=== PATIENT | female | born 1935 | race Caucasian/White ===

== ENCOUNTER → 2017-08-14 | Outpatient (CLI) | payer MEDICARE, OTHER ==
[~2017-08-14] MED LIST: ACID REDUCER 1150 MG PO; DILT120; ERYT250 PO; Eryped 400400 MG/5 M; LISI5 PO; PRAV20
== END | disposition home or self-care (01) ==
LOC: OLS 16:05 → LAB SHORT 16:05
PROVIDERS: Obstetrics & Gynecology Gynecology
DX: Z12.72 Encounter for screening for malignant neoplasm of vagina (principal)
CPT/HCPCS: 87624; G0123

== ENCOUNTER 2019-02-05 03:40 | Inpatient (IN) | payer MEDICARE, OTHER ==
[~2019-02-05] VITALS: Ht 154.9 cm; Wt 60.1 kg
[~2019-02-05 03:40] MED LIST changes: -PRAV20; +PRAV20 PO
[2019-02-05 04:12] LABS: BASOPHILS ABSOLUTE AUTO 0.03 K/mm3 (0.00-0.23); BASOPHILS PERCENT AUTO 1 % (0-2); EOSINOPHILS ABSOLUTE AUTO 0.11 K/mm3 (0.00-0.68); EOSINOPHILS PERCENT AUTO 2 % (0-6); Hematocrit 40.3 % (33.0-51.0); Hemoglobin 13.5 g/dL (11.5-16.0); IMMATURE GRAN PERCENT AUTO 0 % (0-1); LYMPHOCYTES ABSOLUTE AUTO 1.72 K/mm3 (0.84-5.20); LYMPHOCYTES PERCENT AUTO 32 % (21-46); MONOCYTES ABSOLUTE AUTO 0.42 K/mm3 (0.16-1.47); MONOCYTES PERCENT AUTO 8 % (4-13); Mean Corpuscular HGB 31.8 pg (26.0-34.0); Mean Corpuscular HGB Conc 33.5 g/dL (31.5-36.5); Mean Corpuscular Volume 95 fL (80-100); Mean Platelet Volume 8.9 fL (9.1-12.4); NEUTROPHILS ABSOLUTE AUTO 3.05 K/mm3 (1.96-9.15); NEUTROPHILS PERCENT AUTO 57 % (41-73); Platelet Count 278 K/mm3 (150-400); RDW Coefficient Variation 12.6 % (11.7-14.2); RDW Standard Deviation 43.9 fL (35.1-46.3); Red Blood Cell Count 4.24 M/mm3 (3.80-5.20); White Blood Cell Count 5.33 K/mm3 (4.00-11.30)
[2019-02-05 04:31] LABS: Alanine Aminotransfer (ALT/SGP 25 U/L (12-78); Albumin, Blood 3.9 g/dL (3.4-5.0); Albumin/Globulin Ratio 1.2 (0.8-1.8); Alk Phos 60 U/L (50-136); Anion Gap 6 mmol/L (6-16); Aspartate Aminotrans (AST/SGOT 22 U/L (12-37); Bilirubin, Total 0.6 mg/dL (0.1-1.0); Blood Urea Nitrogen 24 mg/dL (8-24); CO2, Blood 26 mmol/L (21-32); Calcium, Blood 9.5 mg/dL (8.5-10.1); Chloride, Blood 109 mmol/L (98-108); Creatinine, Blood 0.86 mg/dL (0.40-1.00); Globulin, Blood 3.2 g/dL (2.2-4.0); Glomerular Filtration Rate >60 (60-); Glucose, Blood 105 mg/dL (70-99); Potassium, Blood 3.9 mmol/L (3.5-5.5); Sodium, Blood 141 mmol/L (136-145); Total Protein, Blood 7.1 g/dL (6.4-8.2)
[2019-02-05 04:46] LABS: Magnesium, Blood 2.1 mg/dL (1.6-2.4); Troponin I <0.015 ng/mL (0.000-0.040)
[2019-02-05 05:28] LABS: Source, Urine Clean Catch
[2019-02-05 05:34] LABS: Bilirubin, Urine Neg (Neg); Blood, Urine Neg (Neg); Glucose Qualitative, Urine Neg (Neg); Ketones, Urine Neg (Neg); Leukocyte Esterase, Urine 2+ (Neg); Nitrite, Urine Neg (Neg); Protein, Urine Neg (Neg); Specific Gravity, Urine 1.015 (1.003-1.022); Urobilinogen, Urine NORM (Normal)
[2019-02-05 05:42] LABS: Appearance, Urine Clear (Clear); Bacteria Few /hpf; Color, Urine Yellow (P-Yellow); Red Blood Cells, Urine Not Seen /hpf (0-2); Squamous Epithelial Cells Not Seen /hpf (Few); White Blood Cells, Urine 0-2 /hpf (0-5)
--- NOTE | 2019-02-05 06:55 | NUR ---
ADMIT NOTE PATIENT ARRIVED FROM ER VIA GURNEY. PATIENT TRANSFERED OVER TO UNIT BED VIA STAND BY ASSIST. PATIENT TOLERATED WELL. PATIENT IN FIRST DEGREE HEART BLOCK IN THE MID TO HIGH 40'S. RESP E/U. PATIENT DENIES ANY SOB OR CHEST PAIN. WILL REPORT TO KEI ZHOU RN. CALL LIGHT W/I REACH.
--- NOTE | 2019-02-05 07:50 | NUR ---
CALLED DR MAI AND CONFIRMED THAT HE KNEW PT HAS ARRIVED TO THE FLOOR AND MINIMAL ORDERS ARE IN. DR AWARE AND WILL WORK ON SEEING THE PT. NO NEW ORDERS RECEIVED. PT IS RUNNING SINUS ADRIANA WITH A FIRST DEGREE HEART BLOCK ON TELEMETRY. PT'S ONLY COMPLAINT IS DIZZINESS WHEN STANDING/AMBULATING. INSTRUCTED PT ON USE OF CALL LIGHT AND NEED TO CALL NURSING FOR ASSISTANCE WHEN UP.
[2019-02-05] MEDS ORDERED: ERYT1OIN BOTHEYES (16:24)
--- NOTE | 2019-02-05 18:48 | NUR ---
PT HAS REMAINED SINUS ADRIANA ON TELEMETERY THROUGH OUT THE DAY. PT COMPLAINS OF DIZZINESS WHILE UP TO USE RESTROOM, BUT HAS NO DIZZINESS WHILE IN BED. PT IS PLANNED FOR PACEMAKER INSERTION, UNKNOWN DATE RELATED TO DR ANDERSON. PT AND FAMILY AWARE THAT DR SOTO STATED IT COULD BE LATE FRIDAY. PT INSTRUCTED TO USE CALL LIGHT AND NOT GET UP WITHOUT ASSISTANCE.
--- NOTE | 2019-02-05 20:53 | NUR ---
UPDATE CALLED NURSE PRACTIONER CHANDNI ABOUT PATIENT'S ERYTHROMYCIN FOR HER EYES AND THE PRAVASTATIN. PRAVASTATIN SHOULD CONTINUE TO BE HELD UNTIL THE DR TOMORROW CAN BE CONSULTED ON IT. ERYTHROMYCIN ORDERED.
[2019-02-06 04:12] LABS: Bun/Creatinine Ratio 27.7 (12.0-20.0); Calcium, Blood 9.2 mg/dL (8.5-10.1); Creatinine, Blood 1.01 mg/dL (0.40-1.00); Potassium, Blood 4.5 mmol/L (3.5-5.5)
--- NOTE | 2019-02-06 07:46 | NUR ---
SHIFT SUMMARY PATIENT PLEASENT AND COOPERATIE THROUGHOUT THE NIGHT. PATIENT UP TO THE BATHROOM WTIH ONE ASSIST SEVERAL TIMES LAST NIGHT. PATIENT REPROTS SHE STILL OCCATIONALLY FEELS DIZZY WITH ACTIVITY. PATIENT APPEARED TO NAP ON AND OFF THROUGHOUT THE NIGHT. VITAL SIGNS CHARTED. REPORT GIVEN TO ONCOMING RN.
--- NOTE | 2019-02-06 09:05 | NUR ---
AM NOTE. ASSUMED CARE OF PT APROX 0700, PT IS A&Ox4 BUT CAN BE FORGETFUL AT TIMES. PT IS WAITING FOR PACER PLACEMENT. PT'S VS STABLE, PT HAS BEEN SB W/FIRST DEGREE IN THE 50'S. PT STATES SHE IS "SLIGHTLY DIZZY" WITH AMBULATION. PT'S OTHER VS STABLE. WILL CONTINUE TO MONITOR.
--- NOTE | 2019-02-06 18:06 | NUR ---
SHIFT SUMMARY. NO ACUTE NEGATIVE CHANGES NOTED THIS SHIFT. PT'S VS HAVE BEEN STABLE, PT'S BP SLIGHTLY ELEVATED, PROVIDER AWARE ORDERS OBTAINED FOR NORVASC PO DAILY. PT IS TO BE NPO FRIDAY AT MIDNIGHT FOR PACER PLACEMENT FRIDAY AM. PT DENIES CHEST PAIN/PRESSURE N/V OR SOB THIS SHIFT. CALL LIGHT IN REACH, BED IS LOCKED AND LOW WILL CONTINUE TO MONITOR UNTIL REPORT IS GIVEN TO ONCOMING RN.
[2019-02-07 04:21] LABS: Anion Gap 6 mmol/L (6-16); Blood Urea Nitrogen 33 mg/dL (8-24); Bun/Creatinine Ratio 36.1 (12.0-20.0); CO2, Blood 25 mmol/L (21-32); Calcium, Blood 9.2 mg/dL (8.5-10.1); Chloride, Blood 110 mmol/L (98-108); Creatinine, Blood 0.91 mg/dL (0.40-1.00); Glomerular Filtration Rate >60 (60-); Glucose, Blood 95 mg/dL (70-99); Potassium, Blood 4.6 mmol/L (3.5-5.5); Sodium, Blood 141 mmol/L (136-145)
--- NOTE | 2019-02-07 05:02 | NUR ---
SHIFT SUMMARY PATIENT PLEASENT AND COOPERATIVE THROUGHOUT THE NIGHT. PATIENT REPORTS SHE CONTINUES TO FEEL DIZZY WHEN STANDING UP. PATIENT APPEARED TO SLEEP WELL THROUGHOUT THE NIGHT. VITAL SIGNS PER EMAR. PATIENT CURRENTLY APPEARS TO BE ASLEEP. WILL CONTINUE TO MONITOR PATIENT AND REPORT TO ONCOMING RN.
--- NOTE | 2019-02-07 09:15 | NUR ---
AM NOTE. ASSUMED CARE OF PT APROX 0700. PT IS A&Ox4 WITH SOME EPISODES OF FORGETFULNESS. PT'S VS STABLE AT THIS TIME. PT'S HR IS IN THE SR W/FIRST DEGREE IN THE 70'S PER SHUTTLE FIXER. PT DENIES CHEST PAIN/PRESSURE, N/V OR SOB AT THIS TIME. PT STATES SHE IS "A LITTLE DIZZY" WHEN SHE MOVES OR GETS UP BUT THAT IT "PASSES QUICKLY." PT IS TO BE NPO AT MIDNIGHT TONIGHT FOR PACER PLACEMENT ON 02/08. PT C/O OF BEING "VERY TIRED" TODAY. CALL LIGHT IN REACH, BED IS LOCKED AND LOW WITH BEDALARM ON WILL CONTINUE TO MONITOR.
--- NOTE | 2019-02-07 15:41 | NUR ---
AFTERNOON ASSESSMENT PT RESTING IN BED, REQUESTING SHOWER. VSS. NO CHANGES TO REPORT AT THIS TIME. WILL CONTINUE TO MONITOR.
--- NOTE | 2019-02-07 18:26 | NUR ---
SHIFT SUMMARY PT IS AWAITING PACER PLACEMENT TOMORROW. SHE HAS HAD NO EPISODES OF SYNCOPE TODAY. PT IS A 1 PERSON ASSIST AND IS UNSTEADY ON HER FEET. SHE HAS REMAINED BRADYCARDIC T/O THE DAY. SHE WILL BE NPO AT MIDNIGHT. VSS. WILL MONITOR UNTIL REPORT TO ONCOMING RN.
[2019-02-08 04:24] LABS: Anion Gap 7 mmol/L (6-16); Blood Urea Nitrogen 28 mg/dL (8-24); CO2, Blood 27 mmol/L (21-32); Calcium, Blood 9.4 mg/dL (8.5-10.1); Chloride, Blood 107 mmol/L (98-108); Creatinine, Blood 0.78 mg/dL (0.40-1.00); Glomerular Filtration Rate >60 (60-); Glucose, Blood 98 mg/dL (70-99); Potassium, Blood 4.4 mmol/L (3.5-5.5); Sodium, Blood 141 mmol/L (136-145)
--- NOTE | 2019-02-08 06:49 | NUR ---
SHIFT SUMMARY PATIENT PLEASENT AND COOPERATIVE THROUGHOUT THE NIGHT. PATIENT APPEARED TO SLEEP WELL LAST NIGHT. PATIENT REPORTS THAT SHE CONTINUES TO FEEL DIZZY WITH AMBULATION. NO COMPLAINTS OF DIZZINESS WHILE LAYING DOWN. PATIENT APPEARS SLIGHTLY ANXIOUS ABOUT PROCEDURE TODAY, EDUCATION PROVIDED. [facility] 0000 [facility] PATIENT CURRENTLY APPEARS TO BE SLEEPING. WILL CONTINUE TO MONITOR AND REPORT TO ONCOMING RN.
--- NOTE | 2019-02-08 12:06 | NUR ---
ASSUMED CARE APPROXIMATELY 0700; PT ALERT; DAUGHTER AT BEDSIDE; PT AWAITING PACER PLACEMENT; DR. DOE IN TO SEE PT; PT PLEASANT AND COMPLIANT W/ CARE; VSS; CALL LIGHT IN REACH; BED IN LOWEST POSITION
--- NOTE | 2019-02-08 12:25 | NUR ---
UPDATE PT BACK TO ROOM; ALERT; DAUGHTER AT BEDSIDE; PT EDUCATION GIVEN TO DAUGHTER FOR REVIEW AND ENCOURAGED TO READ AND MAKE NOTES IF THEY HAD QUESTIONS FOR TOMORROW; VSS; PT ON RA W/ O2 SATS >93; CALL LIGHT IN REACH; BED IN LOWEST POSITION; WILL CONTINUE TO MONITOR CLOSELY
--- NOTE | 2019-02-08 18:23 | NUR ---
SHIFT SUMMARY PT ALERT; HIGH FOWLERS POSITION IN BED; AMBULATED TO BATHROOM W/ ONE PERSON ASSIST; PT HAD APPETITE FOR DINNER TRAY; PLEASANT AND COMPLIANT W/ CARE; PT ON RA W/ O2 SATS >93; CALL LIGHT IN REACH; BED IN LOWEST POSITION; WILL CONTINUE TO MONITOR UNTIL HAND OFF TO NOC RN
--- NOTE | 2019-02-08 18:29 | NUR ---
UPDATE ASSISTED PT W/ HYGIENE CARE; HAIR; TEETH; FACE; SPENT TIME ALLOWING PT TO EXPRESS FEELINGS
[2019-02-09 04:28] LABS: Anion Gap 8 mmol/L (6-16); Blood Urea Nitrogen 24 mg/dL (8-24); Bun/Creatinine Ratio 33.1 (12.0-20.0); CO2, Blood 24 mmol/L (21-32); Calcium, Blood 9.1 mg/dL (8.5-10.1); Chloride, Blood 109 mmol/L (98-108); Creatinine, Blood 0.73 mg/dL (0.40-1.00); Glomerular Filtration Rate >60 (60-); Glucose, Blood 98 mg/dL (70-99); Potassium, Blood 4.3 mmol/L (3.5-5.5); Sodium, Blood 141 mmol/L (136-145)
--- NOTE | 2019-02-09 05:17 | NUR ---
SHIFT SUMMARY PT A&O X4. VSS. MONITOR SHOWS INTERMITTENT SR & PACING, HR 60's-70's. SPO2 > 92% ON RA. R UPPER CHEST WALL INSERTION SITE WNL, DRESSING C/D/I. PT DENIES PAIN/DISCOMFORT. R ARM IN SLING. PT SBA FOR AMBULATION W/ 1 EPISODE OF DIZZINESS REPORTED BY PT TO PCT WHEN AMBULATING TO BATHROOM. PT SAFELY ESCORTED BACK TO BED W/ NO RETURN OF SYMPTOMS. NO FURTHER EVENTS THIS SHIFT. WILL CONTINUE TO MONITOR AND PROVIDE CARE UNTIL REPORT OFF TO DAY SHIFT RN.
--- NOTE | 2019-02-09 06:16 | NUR ---
PT GONE TO IMAGING BY WHEEL CHAIR FOR POST PACER X-RAY @ THIS TIME.
--- NOTE | 2019-02-09 08:32 | NUR ---
DR DOE AT BEDSIDE THIS AM, CHANGED DRESSING, STERI STRIPS INTACT, 4X4 GAUZE WITH CLOTH TAPE COVERING SITE. DR DOE SHOWS DAUGHTER HOW TO CHANGE DRESSING, AND STATES DRESSING CHANGE AT HOME EVERYOTHER DAY AND TO KEEP SPLINT ON UNTIL THURSDAYS. WILL CONTINUE TO MONITOR.
--- NOTE | 2019-02-09 10:10 | NUR ---
ASSUMED CARE APPROXIMATELY 0700; PT ALERT; DAUGHTER AT BEDSIDE; IN TO SEE PT; EDUCATED PT AND DAUGHTER ON DRESSING CHANGE AND DISCHARGE INSTRUCTIONS; PT IS EXPECTING DISCHARGE TODAY; VSS; PT ON RA; O2 SATS >94; PT SITTING UP IN CHAIR SMILING AND VISITING; CALL LIGHT IN REACH; WILL CONTINUE TO MONITOR CLOSELY
[2019-02-09] MEDS ORDERED: AMLO5 PO (12:11)
--- NOTE | 2019-02-09 12:15 | NUR ---
PT PREPARED FOR DISCHARGE; REVIEWED INSTRUCTIONS FOR FOLLOW UP APPOINTMENTS AND NEW MEDICATION ORDER W/ PT AND DAUGHTER; NEW MEDICATION PHONED IN TO [facility]; VERBALIZED UNDERSTANDING; INSTRUCIONS REITERATED FOR S/S OF INFECTION; DRESSING CHANGE; AND NOT USING R ARM; SLING IN PLACE; IV REMOVED WHOLE AND INTACT; ALL BELONGINGS CARRIED OUT BY DAUGHTER; PT ESCORTED IN WHEELCHAIR BY THIS RN
== END 2019-02-09 12:45 | disposition home or self-care (01) | DRG 243 ==
LOC: ER 03:40 → PCU 06:11
PROVIDERS: Emergency Medicine; ADMIT Internal Medicine Endocrinology, Diabetes & Metabolism
PROC: 0JH606Z Insertion of Pacemaker, Dual Chamber into Chest Subcutaneous Tissue and Fascia, Open Approach (ICD-10-PCS; principal; 2019-02-08)
PROC: 02H63JZ Insertion of Pacemaker Lead into Right Atrium, Percutaneous Approach (ICD-10-PCS; 2019-02-08)
PROC: 02HK3JZ Insertion of Pacemaker Lead into Right Ventricle, Percutaneous Approach (ICD-10-PCS; 2019-02-08)
DX: I49.5 Sick sinus syndrome (principal); I47.1 Supraventricular tachycardia; I10 Essential (primary) hypertension; Z90.12 Acquired absence of left breast and nipple; K21.9 Gastro-esophageal reflux disease without esophagitis; Z85.3 Personal history of malignant neoplasm of breast; E78.5 Hyperlipidemia, unspecified; M81.0 Age-related osteoporosis without current pathological fracture; M17.12 Unilateral primary osteoarthritis, left knee; I27.20 Pulmonary hypertension, unspecified
CPT/HCPCS: 33208; 36415; 71045; 71046; 76937; 80048; 80053; 81001; 83735; 84484; 85025; 87086; 93005; 93010; 99152; 99153; 99285-25; C1785; C1898; J0690; J1644; J1650; J2250; J3010; J7030; J7040

== ENCOUNTER → 2019-12-20 | Outpatient (CLI) | payer MEDICARE, OTHER ==
[~2019-12-20] MED LIST changes: +AMLO5 PO; +ERYT1OIN BOTHEYES
== END | disposition home or self-care (01) ==
LOC: LAB SHORT 10:27 → PLD 10:27
DX: D48.5 Neoplasm of uncertain behavior of skin (principal)
CPT/HCPCS: 88305

== ENCOUNTER → 2020-02-15 | Outpatient (CLI) | payer MEDICARE, OTHER | END | disposition home or self-care (01) | LOC: PLD 15:50 → LAB SHORT 15:50 | DX: D48.5 Neoplasm of uncertain behavior of skin (principal) | CPT/HCPCS: 88305 ==

== ENCOUNTER → 2020-02-29 | Outpatient (CLI) | payer MEDICARE, OTHER | LOC: LAB SHORT 08:36 | DX: R35.0 Frequency of micturition (principal) | CPT/HCPCS: 87086 ==

== ENCOUNTER 2022-10-18 07:21 | Emergency (ER) | payer MEDICARE, OTHER ==
[~2022-10-18] VITALS: Ht 154.9 cm; Wt 59.0 kg
[2022-10-18] MEDS ORDERED: HYDHCL25 PO (08:46)
[2022-10-18 09:07] VITALS: BP 149/70
== END 2022-10-18 09:16 | disposition home or self-care (01) ==
LOC: ER 07:21
DX: F41.0 Panic disorder [episodic paroxysmal anxiety] (principal); Z95.0 Presence of cardiac pacemaker; I10 Essential (primary) hypertension; K21.9 Gastro-esophageal reflux disease without esophagitis; E78.5 Hyperlipidemia, unspecified; G40.909 Epilepsy, unspecified, not intractable, without status epilepticus; Z85.3 Personal history of malignant neoplasm of breast; Z79.899 Other long term (current) drug therapy
CPT/HCPCS: 71046; 93005; 93010; 99284-25; A9270

== ENCOUNTER 2023-01-28 18:50 | Emergency (ER) | payer MEDICARE, OTHER ==
[~2023-01-28] VITALS: Ht 152.4 cm; Wt 55.8 kg
[~2023-01-28 18:50] MED LIST changes: +HYDHCL25 PO
[2023-01-28 19:18] LABS: BASOPHILS ABSOLUTE AUTO 0.02 K/mm3 (0.00-0.23); BASOPHILS PERCENT AUTO 0 % (0-2); EOSINOPHILS ABSOLUTE AUTO 0.05 K/mm3 (0.00-0.68); EOSINOPHILS PERCENT AUTO 1 % (0-6); Hematocrit 42.7 % (33.0-51.0); Hemoglobin 14.4 g/dL (11.5-16.0); IMMATURE GRAN ABSOLUTE AUTO 0.02 K/mm3 (0.00-0.10); IMMATURE GRAN PERCENT AUTO 0 % (0-1); LYMPHOCYTES ABSOLUTE AUTO 1.84 K/mm3 (0.84-5.20); LYMPHOCYTES PERCENT AUTO 25 % (21-46); MONOCYTES ABSOLUTE AUTO 0.63 K/mm3 (0.16-1.47); MONOCYTES PERCENT AUTO 9 % (4-13); Mean Corpuscular HGB 31.6 pg (26.0-34.0); Mean Corpuscular HGB Conc 33.7 g/dL (31.5-36.5); Mean Corpuscular Volume 94 fL (80-100); Mean Platelet Volume 9.1 fL (9.1-12.4); NEUTROPHILS ABSOLUTE AUTO 4.74 K/mm3 (1.96-9.15); NEUTROPHILS PERCENT AUTO 65 % (41-73); Platelet Count 330 K/mm3 (150-400); RDW Coefficient Variation 12.9 % (11.7-14.2); RDW Standard Deviation 44.3 fL (35.1-46.3); Red Blood Cell Count 4.56 M/mm3 (3.80-5.20)
[2023-01-28 19:47] LABS: Albumin, Blood 4.2 g/dL (3.4-5.0); Albumin/Globulin Ratio 1.2 (0.8-1.8); Bilirubin, Total 0.5 mg/dL (0.1-1.0); Bun/Creatinine Ratio 22.9 (12.0-20.0); Calcium, Blood 9.8 mg/dL (8.5-10.1); Creatinine, Blood 1.05 mg/dL (0.40-1.00); Globulin, Blood 3.4 g/dL (2.2-4.0); Total Protein, Blood 7.6 g/dL (6.4-8.2)
[2023-01-28 23:00] VITALS: BP 147/82
== END 2023-01-29 00:03 | disposition home or self-care (01) ==
LOC: ER 18:50
PROVIDERS: Emergency Medicine
DX: R04.2 Hemoptysis (principal); Z79.899 Other long term (current) drug therapy; I10 Essential (primary) hypertension; K21.9 Gastro-esophageal reflux disease without esophagitis; Z85.3 Personal history of malignant neoplasm of breast; E78.5 Hyperlipidemia, unspecified; G40.909 Epilepsy, unspecified, not intractable, without status epilepticus; M19.90 Unspecified osteoarthritis, unspecified site
CPT/HCPCS: 71046; 80053; 85025; 85379; 86850; 86900; 86901; 93005; 93010; 99285-25

== ENCOUNTER 2023-03-08 15:12 | Emergency (ER) | payer MEDICARE, OTHER ==
[~2023-03-08] VITALS: Ht 154.9 cm; Wt 55.3 kg
[2023-03-08 15:24] VITALS: BP 145/80
== END 2023-03-08 15:52 | disposition home or self-care (01) ==
LOC: ER 15:12
DX: T82.119A Breakdown (mechanical) of unspecified cardiac electronic device, initial encounter (principal); Z79.899 Other long term (current) drug therapy; I10 Essential (primary) hypertension; K21.9 Gastro-esophageal reflux disease without esophagitis; Z85.3 Personal history of malignant neoplasm of breast; E78.5 Hyperlipidemia, unspecified; G40.909 Epilepsy, unspecified, not intractable, without status epilepticus
CPT/HCPCS: 99282

== ENCOUNTER 2023-05-02 06:08 | Emergency (ER) | payer MEDICARE, OTHER ==
[~2023-05-02] VITALS: Ht 154.9 cm; Wt 54.9 kg
[2023-05-02] MEDS ORDERED: PRED FORTE5 M1 LEFTEYE (06:19)
[2023-05-02] MEDS ORDERED: FLUTICASONE PRO16 GM (06:21)
[2023-05-02] MEDS ORDERED: OXYB5 PO (06:22)
[2023-05-02] MEDS ORDERED: NS 1,000 ML IV SCH (06:45)
[2023-05-02] MEDS ORDERED: Meclizine HCl 25 MG Tab PO ONE (06:45)
[2023-05-02 07:01] LABS: BASOPHILS ABSOLUTE AUTO 0.02 K/mm3 (0.00-0.23); BASOPHILS PERCENT AUTO 0 % (0-2); EOSINOPHILS PERCENT AUTO 2 % (0-6); Hematocrit 42.3 % (33.0-51.0); Hemoglobin 14.7 g/dL (11.5-16.0); IMMATURE GRAN ABSOLUTE AUTO 0.01 K/mm3 (0.00-0.10); IMMATURE GRAN PERCENT AUTO 0 % (0-1); LYMPHOCYTES ABSOLUTE AUTO 1.15 K/mm3 (0.84-5.20); LYMPHOCYTES PERCENT AUTO 25 % (21-46); MONOCYTES ABSOLUTE AUTO 0.35 K/mm3 (0.16-1.47); MONOCYTES PERCENT AUTO 8 % (4-13); Mean Corpuscular HGB 32.2 pg (26.0-34.0); Mean Corpuscular HGB Conc 34.8 g/dL (31.5-36.5); Mean Corpuscular Volume 93 fL (80-100); Mean Platelet Volume 8.8 fL (9.1-12.4); NEUTROPHILS ABSOLUTE AUTO 2.89 K/mm3 (1.96-9.15); NEUTROPHILS PERCENT AUTO 64 % (41-73); Platelet Count 291 K/mm3 (150-400); RDW Coefficient Variation 12.6 % (11.7-14.2); Red Blood Cell Count 4.57 M/mm3 (3.80-5.20); White Blood Cell Count 4.52 K/mm3 (4.00-11.30)
[2023-05-02 07:22] LABS: Albumin, Blood 4.1 g/dL (3.4-5.0); Albumin/Globulin Ratio 1.3 (0.8-1.8); Bilirubin, Total 0.8 mg/dL (0.1-1.0); Bun/Creatinine Ratio 39.2 (12.0-20.0); Calcium, Blood 9.6 mg/dL (8.5-10.1); Creatinine, Blood 0.71 mg/dL (0.40-1.00); Globulin, Blood 3.1 g/dL (2.2-4.0); Potassium, Blood 4.1 mmol/L (3.5-5.5); Total Protein, Blood 7.2 g/dL (6.4-8.2)
[2023-05-02 08:40] VITALS: BP 146/77
[2023-05-02] MEDS ORDERED: MECL25 PO (08:42)
== END 2023-05-02 08:45 | disposition home or self-care (01) ==
LOC: ER 06:08
PROVIDERS: Emergency Medicine
DX: R42 Dizziness and giddiness (principal); I10 Essential (primary) hypertension; K21.9 Gastro-esophageal reflux disease without esophagitis; Z85.3 Personal history of malignant neoplasm of breast; E78.5 Hyperlipidemia, unspecified; G40.909 Epilepsy, unspecified, not intractable, without status epilepticus
CPT/HCPCS: 80053; 84484; 85025; 93005; 93010; 96360; 96361; 99284-25; A9270; J7030